=== PATIENT | female | born 1955 | race Caucasian/White ===

== ENCOUNTER 2017-11-10 10:01 | Day surgery (SDC) | payer BC, SELFPAY ==
[2017-11-10 10:14] VITALS: BP 147/90; PULSE 64; RESP 16; TEMP 36.6; O2SAT 99
[2017-11-10] MEDS: Lactated Ringers 1,000 ML 30 ML IV (10:37)
--- NOTE | 2017-11-10 13:25 | W.PM.HP.N ---
Date of service: 11/10/17 Time of Service: 13:26 Assessment and Plan (1) Encounter for colorectal cancer screening: Current visit: Yes Status: Acute Colonoscopy procedure was reviewed with Ms. Farmer, and the risks of procedure were reviewed with her. All her questions were answered to her satisfaction. History of Present Illness Chief Complaint: Colorectal cancer screening Narrative: 62-year-old woman presenting for colorectal cancer screening by colonoscopy. She has been asymptomatic since her last colonoscopy which was unremarkable. She has no family history of colorectal cancer. Review of Systems Review of Systems Constitutional: Denies fever, chills, malaise, fatigue, weight loss, sweating; Neurological: denies headache, seizures, syncope; weakness Eyes: denies loss of vision, double vision, blurry vision, wears corrective lenses; Ears,nose, throat: denies loss of hearing, tinnitus, vertigo, epistaxis, hoarseness, throat swelling. Cardiac: denies chest pain with exertion, palpation, pain shooting from chest into arm. Respiratory: denies cough, sputum production, chest congestion, wheezing. Gastrointestinal: denies abdominal pain, dysphagia, nausea, vomiting, hematamesis, hematochezia, melena. Genitourinary: denies frequency, urgency, hesitancy, incontinence, and dysuria. Musculoskeletal: denies arthralgia, myalgia, fracture, joint pain, joint swelling, back pain. Psychiatric: denies anxiety, depression, difficulty concentrating, difficulty sleeping, irritability. PFSH Medical History Abnormal mammogram of left breast Dermatophytosis of foot Heart murmur, systolic Hyperlipidemia Hypertension Obesity Social History Smoking/Tobacco Use Status: Never Surgical History Colonoscopy - MAC (12/13/05) Meds Home Medications Medication Instructions Recorded Confirmed Type amlodipine 10 mg PO DAILY tab-cap 08/11/17 11/10/17 History simvastatin 20 mg PO HS tab-cap 08/11/17 11/10/17 History triamterene-hydrochlorothiazid 1 tab-cap PO DAILY tab-cap 08/11/17 11/10/17 History bisacodyl [Dulcolax] 5 mg PO ONCE #4 tab 10/09/17 Rx polyethylene glycol 3350 [Miralax] 17 g PO DAILY #255 gm 10/09/17 Rx Allergies Allergy/AdvReac Type Severity Reaction Status Date / Time codeine Allergy Mild Unverified 11/07/17 14:10 lisinopril Allergy Mild Unverified 11/07/17 14:10 pravastatin Allergy Mild Unverified 11/07/17 14:10 Exam Narrative Exam Narrative: General: Awake, alert, oriented x 3, well groomed Neurological: cranial nerves II-12 grossly intact, moves all extremities, no focal deficits. HEENT: Normacephalic, atruamatic, pupils are equal, round, and reactive to light, extraocular muscles intact, mucousa moist and pink. Neck: normal visual inspection, supple, trachea midline. Heart: regular rate, rhythm Respiratory: No wheezing, cough, sputum production, or chest congestion. breathing unlabored. Abdomen: Soft, non-tender, non-distended, no hernias. Extremities: no cyanosis, clubbing or edema. Integument: warm, dry, normal turgor, no rashes, or lesion.
--- NOTE | 2017-11-10 13:33 | HPE_ITS ---
Date of service: 11/10/17 Time of Service: 13:26 Assessment and Plan (1) Encounter for colorectal cancer screening: Current visit: Yes Status: Acute Colonoscopy procedure was reviewed with Ms. Farmer, and the risks of procedure were reviewed with her. All her questions were answered to her satisfaction. History of Present Illness Chief Complaint: Colorectal cancer screening Narrative: 62-year-old woman presenting for colorectal cancer screening by colonoscopy. She has been asymptomatic since her last colonoscopy which was unremarkable. She has no family history of colorectal cancer. Review of Systems Review of Systems Constitutional: Denies fever, chills, malaise, fatigue, weight loss, sweating; Neurological: denies headache, seizures, syncope; weakness Eyes: denies loss of vision, double vision, blurry vision, wears corrective lenses; Ears,nose, throat: denies loss of hearing, tinnitus, vertigo, epistaxis, hoarseness, throat swelling. Cardiac: denies chest pain with exertion, palpation, pain shooting from chest into arm. Respiratory: denies cough, sputum production, chest congestion, wheezing. Gastrointestinal: denies abdominal pain, dysphagia, nausea, vomiting, hematamesis, hematochezia, melena. Genitourinary: denies frequency, urgency, hesitancy, incontinence, and dysuria. Musculoskeletal: denies arthralgia, myalgia, fracture, joint pain , joint swelling, back pain. Psychiatric: denies anxiety, depression, difficulty concentrating, difficulty sleeping, irritability. PFSH Medical History Abnormal mammogram of left breast Dermatophytosis of foot Heart murmur, systolic Hyperlipidemia Hypertension Obesity Social History Smoking/Tobacco Use Status: Never Surgical History Colonoscopy - MAC (12/13/05) Meds Home Medications Medication Instructions Recorded Confirmed Type amlodipine 10 mg PO DAILY tab-cap 08/11/17 11/10/17 History simvastatin 20 mg PO HS tab-cap 08/11/17 11/10/17 History triamterene-hydrochlorothiazid 1 tab-cap PO DAILY tab-cap 08/11/17 11/10/17 History bisacodyl [Dulcolax] 5 mg PO ONCE #4 tab 10/09/17 Rx polyethylene glycol 3350 [Miralax] 17 g PO DAILY #255 gm 10/09/17 Rx Allergies Allergy/AdvReac Type Severity Reaction Status Date / Time codeine Allergy Mild Unverified 11/07/17 14:10 lisinopril Allergy Mild Unverified 11/07/17 14:10 pravastatin Allergy Mild Unverified 11/07/17 14:10 Exam Narrative Exam Narrative: General: Awake, alert, oriented x 3, well groomed Neurological: cranial nerves II-12 grossly intact, moves all extremities, no focal deficits. HEENT: Normacephalic, atruamatic, pupils are equal, round, and reactive to light, extraocular muscles intact, mucousa moist and pink. Neck: normal visual inspection, supple, trachea midline. Heart: regular rate, rhythm Respiratory: No wheezing, cough, sputum production, or chest congestion. breathing unlabored. Abdomen: Soft, non-tender, non-distended, no hernias. Extremities: no cyanosis, clubbing or edema. Integument: warm , dry, normal turgor, no rashes, or lesion.
--- NOTE | 2017-11-10 13:33 | W.PM.DSUDISC ---
Discharge Plan Disposition Patient Disposition: HOME Condition: Good Discharge Details Reason For Visit: SCREENING Attending Provider: Gold Witt Primary Care Provider: Mann Madrid Home Meds and New Rx's Prescriptions: Continue triamterene-hydrochlorothiazid 1 EACH capsule 1 tab-cap PO DAILY RF: 0 amlodipine 10 MG tablet 10 mg PO DAILY RF: 0 simvastatin 20 MG tablet 20 mg PO HS RF: 0 Discontinued polyethylene glycol 3350 [Miralax] 17 GM powder in packet 17 g PO DAILY Qty: 255 RF: 0 bisacodyl [Dulcolax (bisacodyl)] 5 MG tablet,delayed release (DR/EC) 5 mg PO ONCE Qty: 4 RF: 0 Discharge Instructions Instructions: Colonoscopy (DC) Activity:: Activity as Tolerated Diet:: As Tolerated Discharge Orders Discharge Orders: Discharge Order (Routine); Ordered 11/10/17 Ordered By: Gold Witt DS: Diagnosis Discharge Diagnosis (1) Encounter for colorectal cancer screening: Status: Acute
--- NOTE | 2017-11-10 13:36 | COLE_ITS ---
Date of service: 11/10/17 Time of Service: 13:34 Colonoscopy Report Date of procedure: 11/10/17 Pre-op diagnosis general: Colorectal cancer screening Post-op diagnosis procedure note: other (Normal colon to the cecum) Procedure: Colonoscopy to the cecum Surgeon: Gold Witt Anesthesia proc note operative: MAC (Larry Chicas CRNA; ASA 2; Mallampati class II ) Estimated blood loss (mL): 0 Pathology: none sent Complications: None Disposition: same day Prep: Miralax/Dulcolax Findings: In examining the colon from cecum to anus, no abnormalities were found. Procedure Description: The patient was seen in the day surgery waiting area. Her identification was confirmed, and procedure check. She was then brought to the procedure room. Monitoring for telemetry, blood pressure, oxygen saturation, and end tidal CO2 monitoring were applied. An appropriate time out was performed to confirm, identification, allergies, medication, procedure, was performed. Sedation was titrated for affect by the BLENDING TANK TENDER HELPER; Once adequate sedation was achieved, I performed a inspection of the external perineum, and a digitial rectal examination. No significant external abnormalities were noted. On digital rectal examination, there was no blood, no masses, good rectal tone. I advanced the colonoscope from the anus to the cecum under direct visualization. The cecum was identified by the ileal-cecal valve, and the appendiceal orifice. The scope was then withdrawn in circumferential manner from the cecum to the rectum. No abnormalites were noted in the colon. The scope was then withdrawn into the rectum, and retroflexed. No abnormalities were noted of the rectum or anorectal junction. The scope was then withdrawn, terminating the procedure. There were no complications during the procedure, and the patient tolerated the procedure well. She was returned to the day surgery recovery area in good condition. Plan: Will continue with routine screening for colorectal cancer according to current consensus guidelines, which is currently 10 years.
[2017-11-10 14:39] VITALS: BP 114/65; PULSE 59; RESP 14; TEMP 36.5; O2SAT 95
== END 2017-11-10 14:48 | disposition home or self-care (01) ==
PROVIDERS: PCP Internal Medicine; Visit Provider Surgery
PROC: 0DJD8ZZ Inspection of Lower Intestinal Tract, Via Natural or Artificial Opening Endoscopic (ICD-10-PCS; CPT 45378; principal; 2017-11-10 12:10)
DX: Z12.11 Encounter for screening for malignant neoplasm of colon (principal); I10 Essential (primary) hypertension
CPT/HCPCS: 45378; NC; J2250; J3010

== ENCOUNTER 2018-10-29 11:17 | Outpatient (REF) | payer MEDICARE, SELFPAY ==
[2018-10-29 22:27] LABS: Calculated LDL 190 mg/dL; Cholesterol 273 mg/dL (50-200); HDL Cholesterol 42 mg/dL (40-60); Triglyceride 205 mg/dL (30-150)
== END 2018-10-29 11:37 ==
LOC: NCHCN 11:17
PROVIDERS: PCP Internal Medicine; Visit Provider Internal Medicine
DX: I10 Essential (primary) hypertension (principal); E78.5 Hyperlipidemia, unspecified
CPT/HCPCS: 80061

== ENCOUNTER 2019-08-29 14:02 | Outpatient (REF) | payer MEDICARE, SELFPAY ==
[2019-08-29 21:38] LABS: Calculated LDL 214 mg/dL (<100); Cholesterol 283 mg/dL (<200); HDL Cholesterol 42 mg/dL (40-60); Triglyceride 136 mg/dL (<150)
== END 2019-08-29 14:22 ==
LOC: NCHCN 14:02
PROVIDERS: PCP Internal Medicine; Visit Provider Internal Medicine
DX: E78.5 Hyperlipidemia, unspecified (principal); I10 Essential (primary) hypertension; Z00.00 Encounter for general adult medical examination without abnormal findings
CPT/HCPCS: 80061

== ENCOUNTER 2019-12-06 02:58 | Outpatient (CLI) | payer MEDICARE, SELFPAY ==
--- NOTE | 2019-12-06 | DI.MAMMO_ITS ---
EXAM: MAMMO SCREENING CLINICAL HISTORY: SCREENING,Z12.31 TECHNIQUE: Mammograms were interpreted according to the usual protocol including computer analysis w [employer] CAD system, tomosynthesis and C-view imaging. COMPARISON: 2011 through 2017 FINDINGS: The breasts are composed of scattered fibroglandular densities, Breast Density category B. No suspicious masses or suspicious microcalcifications are seen. No skin thickening or abnormal axillary lymph nodes are seen. There has been no significant change from prior exams. IMPRESSION: BI-RADS Category 1, Negative mammogram Yearly screening mammography is recommended. Breast Density - Category B, scattered fibroglandular densities. A negative radiographic report should not delay biopsy if a dominant or clinically suspicious mass is present. Up to ten percent of cancers are not identified on mammography. A negative report may reinforce clinical impression. Adenosis and dense breasts may obscure an underlying neoplasm. False positive reports average 6 to 10%. Patient will receive a letter notifying them of these results.
== END 2019-12-06 03:18 ==
PROVIDERS: PCP Internal Medicine; Visit Provider Nurse Practitioner Family
DX: Z12.31 Encounter for screening mammogram for malignant neoplasm of breast (principal)
CPT/HCPCS: 77063; 77067

== ENCOUNTER 2020-10-27 16:48 | Outpatient (REF) | payer MEDICARE, SELFPAY ==
[2020-10-27 21:49] LABS: Anion Gap 11.4 mmol/L (3-11); BUN 17 mg/dL (7-18); CO2 25.6 mmol/L (21.0-32.0); CREATININE 1.1 mg/dL (0.55-1.02); Calcium 9.8 mg/dL (8.5-10.1); Calculated LDL 203 mg/dL (<100); Chloride 105 mmol/L (98-107); Cholesterol 292 mg/dL (<200); Estimated GFR 49.54 (mL/min/1.73m2); Glucose 129 mg/dL (74-106); HDL Cholesterol 41 mg/dL (40-60); Potassium 3.6 mmol/L (3.5-5.1); Sodium 142 mmol/L (136-145); Triglyceride 240 mg/dL (<150)
== END 2020-10-27 16:49 | disposition home or self-care (01) ==
LOC: NCHCN 16:48
PROVIDERS: PCP Internal Medicine; Visit Provider Internal Medicine
DX: I10 Essential (primary) hypertension (principal); Z13.220 Encounter for screening for lipoid disorders
CPT/HCPCS: 80048; 80061

== ENCOUNTER 2021-10-25 17:59 | Outpatient (REF) | payer MEDICARE, SELFPAY ==
[2021-10-26 14:51] LABS: HSV 1 DNA Result Negative (Negative); HSV 2 DNA Result Negative (Negative); Varicella Zoster DNA Result Positive ((See Note))
[2021-11-02 12:12] LABS: Misc Referral (MAYO) See Comments
== END 2021-10-25 18:00 | disposition home or self-care (01) ==
LOC: LBN 17:59
PROVIDERS: PCP Internal Medicine; Visit Provider Physician Assistant Medical
DX: R21 Rash and other nonspecific skin eruption (principal); L03.311 Cellulitis of abdominal wall
CPT/HCPCS: 87529; 87798; 87498

== ENCOUNTER 2021-10-29 09:26 | Outpatient (REF) | payer MEDICARE, SELFPAY ==
[2021-10-29 19:56] LABS: Anion Gap 5.5 mmol/L (3-11); BUN 14 mg/dL (7-18); CO2 30.5 mmol/L (21.0-32.0); CREATININE 0.9 mg/dL (0.55-1.02); Calcium 10.5 mg/dL (8.5-10.1); Calculated LDL 187 mg/dL (<100); Chloride 104 mmol/L (98-107); Cholesterol 258 mg/dL (<200); Estimated GFR 69.64 (mL/min/1.73m2); Glucose 99 mg/dL (74-106); HDL Cholesterol 40 mg/dL (40-60); Potassium 4.9 mmol/L (3.5-5.1); Sodium 140 mmol/L (136-145); Triglyceride 157 mg/dL (<150)
== END 2021-10-29 09:27 | disposition home or self-care (01) ==
LOC: NCHCN 09:26
PROVIDERS: PCP Internal Medicine; Visit Provider Family Medicine
DX: E78.5 Hyperlipidemia, unspecified (principal)
CPT/HCPCS: 80048; 80061

== ENCOUNTER 2021-11-08 13:40 | Outpatient (REF) | payer MEDICARE, SELFPAY | END 2021-11-08 13:41 | disposition home or self-care (01) | LOC: NCHCN 13:40 | PROVIDERS: PCP Internal Medicine; Visit Provider Family Medicine | DX: Z51.89 Encounter for other specified aftercare (principal); E78.5 Hyperlipidemia, unspecified | CPT/HCPCS: 87070; 87205 ==

== ENCOUNTER → 2021-11-16 01:24 | Outpatient (CLI) | payer MEDICARE, SELFPAY ==
--- NOTE | 2021-11-16 08:28 | DI.MAMMO_ITS ---
Exam(s) MAMMO SCREENING EXAM: MAMMO SCREENING CLINICAL HISTORY: SCREENING, Z12.39. TECHNIQUE: Bilateral full field digital CC and MLO mammographic images were obtained with 3D tomosyn thesis and utilizing computer aided detection (CAD). COMPARISON: Prior mammograms were reviewed, the most recent being November 2019.. FINDINGS: There has been no significant change in the appearance and distribution of the fibroglandular tissue There are no new spiculated masses nor malignant appearing microcalcification groups. Benign microcalcifications again noted in both breasts. There is no significant architectural distortion nor skin thickening-retraction. IMPRESSION: No radiographic evidence of malignancy. Stable benign-appearing findings BI-RADS Category 2 - Benign Findings Breast Density - Category B - Scattered areas of fibroglandular density Breast density Category C or D implies that the patient has dense breast tissue. Dense breast tissue can make it harder to find cancer on a mammogram. Dense breast tissue is also associated with an incr eased risk of breast cancer. This information about the result of the mammogram report was provided to the patient to raise their awareness. Use this report when you speak with the patient about their risks for breast cancer, which includes their family history. At that time, you may recommend additional screening tests (Ultrasoun d or MRI) as these tests may add significant information. A negative radiographic report should not delay biopsy if a dominant or clinically suspicious mass is present. Up to ten percent of cancers are not identified on mammography. A negative report may reinforce clinical impression. Adenosis and dense breasts may obscure an underlying neoplasm. False positive reports average 6 to 10%. Patient will receive a letter notifying them of these results.
== END ==
PROVIDERS: PCP Internal Medicine; Visit Provider Family Medicine
DX: Z12.31 Encounter for screening mammogram for malignant neoplasm of breast (principal)
CPT/HCPCS: 77063; 77067

== ENCOUNTER 2022-10-31 17:48 | Outpatient (REF) | payer MEDICARE, SELFPAY ==
[2022-10-31 16:47] LABS: HCT 41.2 % (36.0-46.0); HGB 13.7 g/dL (11.2-15.7); MCHC 33.3 % (32.0-36.0); MCV 87 fL (80-95); MPV 12.1 fL (8.0-11.0); Platelet Count 213 10^3/uL (130-400); RBC 4.73 10^6/uL (3.93-5.22); RDW-SD 41.1 fL
[2022-10-31 17:06] LABS: ALT 25 U/L (14-59); AST 16 U/L (15-37); Alkaline Phosphatase 56 U/L (46-116); Anion Gap 11.9 mmol/L (3-11); BUN 23 mg/dL (7-18); Bilirubin, Total 0.5 mg/dL (0.2-1.0); CO2 24.1 mmol/L (21.0-32.0); CREATININE 0.9 mg/dL (0.55-1.02); Calcium 9.6 mg/dL (8.5-10.1); Calculated LDL 104 mg/dL (<100); Chloride 101 mmol/L (98-107); Cholesterol 184 mg/dL (<200); Glucose 107 mg/dL (74-106); HDL Cholesterol 69 mg/dL (40-60); Potassium 4.1 mmol/L (3.5-5.1); Sodium 137 mmol/L (136-145); Total Protein 7.7 g/dL (6.4-8.2); Triglyceride 55 mg/dL (<150)
== END 2022-10-31 17:49 | disposition home or self-care (01) ==
LOC: NCHCN 17:48
PROVIDERS: PCP Internal Medicine; Visit Provider Family Medicine
DX: I10 Essential (primary) hypertension (principal); E78.5 Hyperlipidemia, unspecified; R01.1 Cardiac murmur, unspecified
CPT/HCPCS: 80053; 80061; 85027

== ENCOUNTER 2023-11-02 15:45 | Outpatient (REF) | payer MEDICARE, SELFPAY ==
[2023-11-02 17:41] LABS: Abs Immature Grans 0.01 10^3/uL (0.0-0.06); Absolute Basophil Count 0.04 10^3/uL (0.0-0.2); Absolute Eosinophil Count 0.14 10^3/uL (0.0-0.7); Absolute Lymphocyte Count 1.25 10^3/uL (1.2-3.4); Absolute Neutrophil Count 1.87 10^3/uL (1.2-6.7); Basophils % 1.1 %; Eosinophils % 3.8 %; HGB 14.7 g/dL (11.2-15.7); Immature Grans % 0.3 %; Lymphocytes % 33.7 %; MCH 30.3 pg (27.0-33.0); MCHC 32.7 % (32.0-36.0); MCV 93 fL (80-95); MPV 10.8 fL (8.0-11.0); Monocytes % 10.8 %; Neutrophils % 50.3 %; Platelet Count 313 10^3/uL (130-400); RBC 4.85 10^6/uL (3.93-5.22); RDW-SD 41.4 fL; WBC 3.71 10^3/uL (4.4-10.8)
[2023-11-02 18:04] LABS: ALT 27 U/L (14-59); AST 25 U/L (15-37); Albumin 4.3 g/dL (3.4-5.0); Alkaline Phosphatase 62 U/L (46-116); Anion Gap 6.9 mmol/L (3-11); BUN 15 mg/dL (7-18); Bilirubin, Total 0.47 mg/dL (0.2-1.0); CO2 31.1 mmol/L (21.0-32.0); CREATININE 0.7 mg/dL (0.55-1.02); Chloride 103 mmol/L (98-107); Estimated GFR 92.98 (mL/min/1.73m2); Glucose 96 mg/dL (74-106); LDL CHOLESTEROL 93 mg/dL (<100); Potassium 4.6 mmol/L (3.5-5.1); Sodium 141 mmol/L (136-145); Total Protein 7.8 g/dL (6.4-8.2)
== END 2023-11-02 15:46 | disposition home or self-care (01) ==
LOC: NCHCN 15:45
PROVIDERS: PCP Family Medicine; Visit Provider Family Medicine
DX: E78.5 Hyperlipidemia, unspecified (principal); I10 Essential (primary) hypertension
CPT/HCPCS: 80053; 83721; 85025

== ENCOUNTER 2023-11-08 01:55 | Outpatient (CLI) | payer MEDICARE, SELFPAY ==
--- NOTE | 2023-11-08 | DI.MAMMO_ITS ---
Exam(s) MAMMO SCREENING EXAM: MAMMO SCREENING CLINICAL HISTORY: Screening, Encounter for general medical examination, Z00.00 TECHNIQUE: Bilateral full field digital CC and MLO mammographic images were obtained with 3D tomosyn thesis and utilizing computer aided detection (CAD). COMPARISON: Available for comparison. FINDINGS: Masses/Architectural Distortion: None seen. Microcalcifications: No suspicious pleomorphic-type are seen. Skin Thickening/Nipple Retraction: None. IMPRESSION: 1. No significant interval change with no specific features of malignancy noted. 2. Unless there is more urgent need, screening mammography is recommended, as per [employer] guidelines. BI-RADS Category 1 - Negative Breast Density - Category B - Scattered areas of fibroglandular density Breast density category C or D implies that the patient has dense breast tissue. Dense breast tissue is very common and is not abnormal but dense breast tissue can make it harder to find cancer on a ma mmogram. Also, dense breast tissue may increase their breast cancer risk. This information about the result of the mammogram report was provided to the patient to raise their awareness. Use this report when you speak with the patient about their risks for breast cancer, which includes their family hist ory. At that time, you may recommend for more screening tests (Ultrasound or MRI) as they might be us eful based on their risk. A negative radiographic report should not delay biopsy if a dominant or clinically suspicious mass is present. Up to ten percent of cancers are not identified on mammography. A negative report may reinforce clinical impression. Adenosis and dense breasts may obscure an underlying neoplasm. False positive reports average 6 to 10%. Patient will receive a letter notifying them of these results.
== END 2023-11-08 02:15 ==
LOC: DI 01:55
PROVIDERS: PCP Family Medicine; Visit Provider Family Medicine
DX: Z12.31 Encounter for screening mammogram for malignant neoplasm of breast (principal)
CPT/HCPCS: 77063; 77067

== ENCOUNTER 2024-12-10 14:05 | Outpatient (REF) | payer MEDICARE, SELFPAY ==
[2024-12-10 20:45] LABS: HCT 39.0 % (36.0-46.0); HGB 13.0 g/dL (11.2-15.7); MCH 30.3 pg (27.0-33.0); MCHC 33.3 % (32.0-36.0); MCV 91 fL (80-95); MPV 10.6 fL (8.0-11.0); Platelet Count 256 10^3/uL (130-400); RBC 4.29 10^6/uL (3.93-5.22); RDW 11.9 % (11.7-14.6); RDW-SD 39.8 fL; WBC 4.73 10^3/uL (4.4-10.8)
[2024-12-10 20:58] LABS: ALT 22 U/L (14-59); AST 18 U/L (15-37); Albumin 3.9 g/dL (3.4-5.0); Alkaline Phosphatase 62 U/L (46-116); Anion Gap 7.3 mmol/L (3-11); BUN 11 mg/dL (7-18); Bilirubin, Total 0.5 mg/dL (0.2-1.0); CO2 29.7 mmol/L (21.0-32.0); Calcium 9.5 mg/dL (8.5-10.1); Chloride 101 mmol/L (98-107); Estimated GFR 92.41 (mL/min/1.73m2); Glucose 70 mg/dL (74-106); Potassium 4.0 mmol/L (3.5-5.1); Sodium 138 mmol/L (136-145); Total Protein 7.2 g/dL (6.4-8.2)
[2024-12-10 21:09] LABS: LDL CHOLESTEROL 77 mg/dL (<100)
== END 2024-12-10 14:06 | disposition home or self-care (01) ==
LOC: NCHCN 14:05
PROVIDERS: PCP Family Medicine; Visit Provider Family Medicine
DX: E78.5 Hyperlipidemia, unspecified (principal); I10 Essential (primary) hypertension
CPT/HCPCS: 80053; 83721; 85027